=== PATIENT | male | born 1980 | race Caucasian/White ===

== ENCOUNTER 2018-03-23 08:53 | Inpatient (IN) | payer OTHER ==
[~2018-03-23] VITALS: Ht 163.8 cm; Wt 100.4 kg
[2018-03-23] MEDS ORDERED: SODIUM CHLORIDE 0.9% 1,000 ML IV ONE ×2 (09:01→11:06)
[2018-03-23] MEDS ORDERED: ONDANSETRON ODT 4 MG ONE (09:03)
[2018-03-23] MEDS ORDERED: HYDROmorphone 2 MG/ML, 1ML ONE (09:03)
[2018-03-23 09:19] LABS: MEAN CORPUSCULAR HEMOGLOBIN 29.2 pg (27.5-34.5); MEAN CORPUSCULAR HGB CONC 33.5 g/dL (33.2-36.2); MEAN CORPUSCULAR VOLUME 87.2 fL (81-97); PLATELET COUNT 418 x10^3/uL (130-400); RED BLOOD COUNT 5.51 x10^6/uL (4.38-5.82); RED CELL DISTRIBUTION WIDTH 13.6 % (9.4-14.8)
[2018-03-23 09:25] LABS: BASOPHILS # (AUTO) 0.04 x10^3/uL (0-0.1); BASOPHILS % (AUTO) 0 % (0-1); EOSINOPHILS % (AUTO) 0 % (1-7); LYMPHOCYTES # (AUTO) 1.26 x10^3/uL (1-3.4); LYMPHOCYTES % (AUTO) 6 % (22-44); MD SCAN; MONOCYTES # (AUTO) 0.39 x10^3/uL (0.2-0.8); MONOCYTES % (AUTO) 2 % (2-9); NEUTROPHILS # (AUTO) 19.69 x10^3/uL (1.8-6.8); NEUTROPHILS % (AUTO) 92 % (42-75)
[2018-03-23] MEDS ORDERED: OMEP20TA62 PO (09:25)
[2018-03-23] MEDS ORDERED: SODIUM CHLORIDE 0.9% 1,000ML IVBOLUS ONE (09:30)
[2018-03-23] MEDS ORDERED: ONDANSETRON ODT 4 MG PO ONE (09:30)
[2018-03-23] MEDS ORDERED: PLEASE ENTER HEIGHT AND WEIGHT MC SCH (09:30)
[2018-03-23] MEDS ORDERED: PLEASE ENTER ALLERGIES MC SCH (09:30)
[2018-03-23] MEDS ORDERED: HYDROmorphone 2 MG/ML, 1ML IVPush PRN (09:30)
[2018-03-23] MEDS ORDERED: SODIUM CHLORIDE FLUSH 10ML SYR IVF ONE (09:30)
[2018-03-23 09:31] LABS: ALANINE AMINOTRANSFERASE 30 U/L (12-78); ALBUMIN 4.4 g/dL (3.4-5.0); ANION GAP 13 mmol/L (5-15); CALCIUM 9.8 mg/dL (8.5-10.1); CHLORIDE 100 mmol/L (98-107); CREATININE 0.98 mg/dL (0.7-1.3)
[2018-03-23 09:33] LABS: ALKALINE PHOSPHATASE 128 U/L (45-117); BILIRUBIN,TOTAL 0.7 mg/dL (0.2-1.0); TOTAL PROTEIN 8.6 g/dL (6.4-8.2)
[2018-03-23 10:43] LABS: MICROSCOPIC INDICATED
[2018-03-23 11:04] LABS: CULTURE INDICATED? NO
[2018-03-23] MEDS ORDERED: CEFOTETAN PMX 1GM/50ML 50 ML ONE (11:09)
[2018-03-23] MEDS ORDERED: HYDROmorphone 1 MG/ML, 1ML IVPush PRN (11:30)
[2018-03-23] MEDS ORDERED: CEFOTETAN PMX 1GM/50ML 50 ML IV ONE (11:30)
[2018-03-23] MEDS ORDERED: SODIUM CHLORIDE FLUSH 10ML SYR IVF PRN (11:30)
[2018-03-23] MEDS ORDERED: MIDAZOLAM 1 MG/ML, 2ML ONE (12:41)
[2018-03-23] MEDS ORDERED: FENTANYL PF 100 MCG/2ML ONE ×2 (12:41→14:30)
[2018-03-23] MEDS ORDERED: SUCCINYLCHOLINE 20 MG/ML, 10ML ONE (12:44)
[2018-03-23] MEDS ORDERED: LIDOCAINE-MPF 2% ,5ML ONE (12:44)
[2018-03-23] MEDS ORDERED: PROPOFOL 10 MG/ML, 20ML ONE ×2 (12:44→14:23)
[2018-03-23] MEDS ORDERED: DEXAMETHASONE 4 MG/ML, 1ML ONE ×2 (12:45)
[2018-03-23] MEDS ORDERED: BUPIVACAINE/PF-EPI 0.5% 1:200K ONE (13:07)
[2018-03-23] MEDS ORDERED: CEFAZOLIN 1,000 MG ONE (13:21)
[2018-03-23] MEDS ORDERED: BUPIVACAINE/PF-EPI 0.5% 1:200K INFIL ONE (14:13)
[2018-03-23] MEDS ORDERED: PROPOFOL 50 ML ONE (14:27)
[2018-03-23] MEDS ORDERED: PROPOFOL 100 ML IV ONE ×2 (14:48→15:46)
[2018-03-23] MEDS ORDERED: MORPHINE SULFATE 4 MG/ML, 1ML ONE (15:08)
[2018-03-23] MEDS: morphine SULFATE 10 MG/ML, 1ML IV PRN ×2 (15:09→16:38)
[2018-03-23] MEDS ORDERED: hydrALAzine 20 MG/ML, 1ML ONE (15:09)
[2018-03-23] MEDS ORDERED: ONDANSETRON 2MG/ML, 2ML IV PRN (15:30)
[2018-03-23] MEDS ORDERED: DIPHENHYDRAMINE 25 MG CAPSULE PO PRN (15:30)
[2018-03-23] MEDS ORDERED: ACETAMINOPHEN 650 MG SUPP PR PRN (15:30)
[2018-03-23] MEDS ORDERED: SODIUM CHLORIDE 0.9%, 500ML IV PRN (15:30)
[2018-03-23] MEDS ORDERED: ENALAPRILAT 1.25 MG/ML, 2ML IV PRN (15:30)
[2018-03-23] MEDS ORDERED: ACETAMINOPHEN 325 MG TABLET PO PRN (15:30)
[2018-03-23] MEDS ORDERED: DIPHENHYDRAMINE 50 MG/ML, 1ML IV PRN (15:30)
[2018-03-23] MEDS: hydrALAzine 20 MG/ML, 1ML IV PRN (15:50)
[2018-03-23] MEDS: D5%-LACTATED RINGERS 1,000 ML IV SCH ×2 (15:52→23:57)
[2018-03-23] MEDS ORDERED: LORazepam 2 MG/ML, 1ML IV PRN (16:00)
[2018-03-23] MEDS ORDERED: LORazepam 1MG TABLET PO PRN (16:00)
[2018-03-23] MEDS ORDERED: FENTANYL PF 2,500 MCG in SODIUM CHLORIDE 0.9% 200 ML IV PRN (16:40)
[2018-03-23] MEDS ORDERED: LACTULOSE 20 GM/30 ML UDC NG PRN (17:00)
[2018-03-23] MEDS ORDERED: SENNA/DOCUSATE TABLET NG PRN (17:00)
[2018-03-23] MEDS ORDERED: BISACODYL 10 MG SUPP PR PRN (17:00)
[2018-03-23] MEDS ORDERED: PHARMACY MAY ADJ FOR RENAL FX MC SCH (17:00)
[2018-03-23] MEDS ORDERED: LIDOCAINE-MPF 1%, 2ML ENDO PRN (17:00)
[2018-03-23] MEDS ORDERED: SENNOSIDES 8.8 MG/5 ML ORAL SOL NG PRN (17:00)
[2018-03-23] MEDS: FAMOTIDINE 20 MG/2 ML IV SCH (17:17)
[2018-03-23] MEDS: ENOXAPARIN 40 MG/0.4 ML SQ SCH (17:17)
[2018-03-23] MEDS: AMPICILLIN/SULBACTAM 3 GM in SODIUM CHLORIDE 0.9% 100 ML IV SCH ×2 (17:17→23:16)
[2018-03-23] MEDS: PROPOFOL 100 ML IV PRN ×3 (17:19→23:16)
[2018-03-23 17:48] VITALS: BP 160/93
[2018-03-23] MEDS: CEFOTETAN PMX 2GM/50ML 50 ML IVPB SCH (23:55)
[2018-03-24 04:32] LABS: MEAN CORPUSCULAR HEMOGLOBIN 29.5 pg (27.5-34.5); MEAN CORPUSCULAR HGB CONC 33.5 g/dL (33.2-36.2); MEAN CORPUSCULAR VOLUME 87.9 fL (81-97); PLATELET COUNT 317 x10^3/uL (130-400); RED BLOOD COUNT 4.34 x10^6/uL (4.38-5.82); RED CELL DISTRIBUTION WIDTH 14.4 % (9.4-14.8)
[2018-03-24] MEDS: PROPOFOL 100 ML IV PRN (04:41)
[2018-03-24 04:42] LABS: ALANINE AMINOTRANSFERASE 18 U/L (12-78); ALBUMIN 2.7 g/dL (3.4-5.0); ANION GAP 7 mmol/L (5-15); CALCIUM 7.6 mg/dL (8.5-10.1); CHLORIDE 108 mmol/L (98-107); CREATININE 1.12 mg/dL (0.7-1.3)
[2018-03-24 04:44] LABS: ALKALINE PHOSPHATASE 82 U/L (45-117); BILIRUBIN,TOTAL 0.4 mg/dL (0.2-1.0)
[2018-03-24] MEDS: AMPICILLIN/SULBACTAM 3 GM in SODIUM CHLORIDE 0.9% 100 ML IV SCH ×4 (04:47→23:02)
[2018-03-24] MEDS: FAMOTIDINE 20 MG/2 ML IV SCH ×2 (04:47→16:12)
[2018-03-24 04:54] LABS: BASOPHILS # (AUTO) 0.02 x10^3/uL (0-0.1); BASOPHILS % (AUTO) 0 % (0-1); EOSINOPHILS % (AUTO) 0 % (1-7); LYMPHOCYTES # (AUTO) 1.19 x10^3/uL (1-3.4); LYMPHOCYTES % (AUTO) 6 % (22-44); MD SCAN; MONOCYTES # (AUTO) 0.84 x10^3/uL (0.2-0.8); MONOCYTES % (AUTO) 4 % (2-9); NEUTROPHILS # (AUTO) 18.46 x10^3/uL (1.8-6.8); NEUTROPHILS % (AUTO) 90 % (42-75)
[2018-03-24] MEDS: CEFOTETAN PMX 2GM/50ML 50 ML IVPB SCH (09:53)
[2018-03-24] MEDS: ENOXAPARIN 40 MG/0.4 ML SQ SCH (15:58)
[2018-03-24] MEDS: D5%-LACTATED RINGERS 1,000 ML IV SCH (15:58)
[2018-03-24 16:30] VITALS: BP 139/87
[2018-03-24 18:38] VITALS: BP 137/86
[2018-03-24] MEDS: KETOROLAC 30 MG/1 ML IV PRN (20:18)
[2018-03-25 01:53] VITALS: BP 123/70
[2018-03-25] MEDS: AMPICILLIN/SULBACTAM 3 GM in SODIUM CHLORIDE 0.9% 100 ML IV SCH ×4 (04:58→22:54)
[2018-03-25] MEDS: FAMOTIDINE 20 MG/2 ML IV SCH ×2 (04:58→16:58)
[2018-03-25] MEDS: D5%-LACTATED RINGERS 1,000 ML IV SCH ×2 (05:04→22:54)
[2018-03-25] MEDS: KETOROLAC 30 MG/1 ML IV PRN ×2 (05:04→20:11)
[2018-03-25 07:54] VITALS: BP 130/77
[2018-03-25] MEDS: hydrALAzine 20 MG/ML, 1ML IV PRN (13:02)
[2018-03-25 13:20] VITALS: BP 160/108
[2018-03-25 14:40] VITALS: BP 138/88
[2018-03-25] MEDS: ENOXAPARIN 40 MG/0.4 ML SQ SCH (16:58)
[2018-03-25 19:51] VITALS: BP 147/90
[2018-03-26] MEDS: AMPICILLIN/SULBACTAM 3 GM in SODIUM CHLORIDE 0.9% 100 ML IV SCH ×2 (04:43→11:12)
[2018-03-26] MEDS: FAMOTIDINE 20 MG/2 ML IV SCH (04:43)
[2018-03-26 04:48] VITALS: BP 129/76
[2018-03-26 07:43] VITALS: BP 157/104
[2018-03-26 09:12] VITALS: BP 148/94
[2018-03-26 13:21] VITALS: BP 170/106
[2018-03-26 14:19] VITALS: BP 141/91
[2018-03-26] MEDS ORDERED: HYDR-3240 PO (15:27)
[2018-03-26] MEDS ORDERED: DOCU-131 PO (15:28)
[2018-03-26] MEDS ORDERED: ONDA4TAB7 PO (15:28)
== END 2018-03-26 16:11 | disposition home or self-care (01) | DRG 329 ==
LOC: ED 11:05 → EDIP 11:06 → CCU 14:44 → 4NOR 03-24 16:31 → DCLOUNGE 03-26 15:56
PROVIDERS: ADMIT Surgery; ATTEND Surgery
PROC: 0DB80ZZ Excision of Small Intestine, Open Approach (ICD-10-PCS; 2018-03-23)
PROC: 0WQF0ZZ Repair Abdominal Wall, Open Approach (ICD-10-PCS; 2018-03-23)
PROC: 0BH17EZ Insertion of Endotracheal Airway into Trachea, Via Natural or Artificial Opening (ICD-10-PCS; 2018-03-23)
PROC: 5A1935Z Respiratory Ventilation, Less than 24 Consecutive Hours (ICD-10-PCS; principal; 2018-03-23 11:30)
DX: K42.0 Umbilical hernia with obstruction, without gangrene (principal); J96.01 Acute respiratory failure with hypoxia; K55.021 Focal (segmental) acute infarction of small intestine; E87.2 Acidosis; K21.9 Gastro-esophageal reflux disease without esophagitis
CPT/HCPCS: 36415; 36600; J7121; S0028; 71045; 76700; 80053; 81001; 82803; 83605; 83690; 83735; 84478; 85025; 87070; 87081; 87205; 88307; 90656; 94002; 94003; 94150; G0378; J0295; J0690; J1100; J1170; J1650; J1885; J2250; J2704; J3010; J3490; Q0162; J0330; J0360; J1200; J2270; J7030; J7050; S0074